=== PATIENT | female | born 1995 | race African-American/Black ===

== ENCOUNTER 2021-11-23 12:22 | Emergency (ER) | payer MEDICAID ==
[~2021-11-23] VITALS: Ht 152.4 cm; Wt 46.0 kg
[2021-11-23 13:16] VITALS: BP 113/71
[2021-11-23] MEDS ORDERED: METOCLOPRAMIDE HCL 10MG/2ML VIAL IV STA (14:18)
[2021-11-23 14:29] LABS: CLARITY URINE CLOUDY (CLEAR); COLOR URINE DARK YELLOW (YELLOW); KETONES URINE 3+ (NEGATIVE); LEUKOCYTE ESTERASE URINE 1+ (NEGATIVE); NITRITE URINE NEGATIVE (NEGATIVE); OCCULT BLOOD URINE NEGATIVE (NEGATIVE); PROTEIN URINE 1+ (NEGATIVE); SPECIFIC GRAVITY URINE 1.029 (1.005-1.030)
[2021-11-23] MEDS ORDERED: SODIUM CHLORIDE 0.9% 1,000 ML IV ONE (14:30)
[2021-11-23] MEDS ORDERED: CEFTRIAXONE 1 G PREMIX 50 ML IV ONE (15:00)
[2021-11-23 15:15] LABS: BASOPHILS % 0.3 % (0.0-2.0); EOSINOPHILS % 0.1 % (0.0-5.0); HEMATOCRIT. 42.2 % (36.0-48.0); HEMOGLOBIN. 14.4 g/dL (12.0-16.0); LYMPHOCYTES % 11.3 % (20.0-50.0); MEAN CORPUSCULAR HEMOGLOBIN 32.6 pg (28.0-32.0); MEAN CORPUSCULAR VOLUME 95.9 fL (81.0-99.0); MONOCYTES % 7.3 % (2.0-8.0); PLATELET 327 x1000/uL (130-400)
[2021-11-23 15:24] LABS: CHLORIDE 103 mEq/L (98-107)
[2021-11-23 15:32] LABS: BETA HYDROXYBUTYRATE 0.2 mMol/L (0.0-0.3)
[2021-11-23] MEDS ORDERED: CEPH500T MT (15:51)
[2021-11-23] MEDS ORDERED: DOXY25TA61 MT (15:51)
[2021-11-23] MEDS ORDERED: PYRI50CA MT (15:51)
[2021-11-23] MEDS ORDERED: METO-293 MT (15:51)
== END 2021-11-23 16:15 | disposition home or self-care (01) ==
LOC: ER 12:22
DX: O21.9 Vomiting of pregnancy, unspecified (principal); Z3A.08 8 weeks gestation of pregnancy
CPT/HCPCS: 36415; 80053; 81003; 82010; 83690; 85025; 96361; 96365; 96375; 99284; J0696; J2765; J7030